=== PATIENT | male | born 1975 | race African-American/Black ===

== ENCOUNTER → 2021-01-17 09:36 | Outpatient (CLI) | payer OTHER, SELFPAY ==
--- NOTE | 2021-01-17 09:43 | DI.MRI.S_ITS ---
PROCEDURE: MR ANKLE RT WO CON INDICATIONS: Other instability, right ankle TECHNIQUE: Noncontrast sagittal T1 spin echo and T2 fast spin echo with fat saturation, axial proton density fast spin echo and T2 fast spin echo with fat saturation, coronal T1 spin echo and T2 fast spin echo with fat saturation through the ankle/hindfoot. COMPARISON: None. FINDINGS: Image quality: Excellent. Bones and joints: A chronic osteochondral lesion is seen at the lateral talar dome measuring 14 x 5 x 9 mm with chronic subchondral cystic changes, overlying cartilage loss, and mild irregularity of the subchondral plate. No loose osteochondral fragment is seen. Prominent osteophyte formation is seen at the dorsal aspect of the talonavicular joint with associated osseous edema. There is increased signal intensity within the dorsal talonavicular ligament. Edema is seen within the medial talus involving the insertion site of the anterior fibers of the deltoid ligament. Mild degenerative changes are seen at the navicular cuneiform articulations. A 6 mm ossified loose body is seen in the posterior recess. Medial structures: The anterior fibers of the deep deltoid ligament appear attenuated and increased in signal intensity with osseous edema at the distal insertion site onto the talus. The visualized spring ligament components appear to be intact. There is mild tenosynovitis of the distal posterior tibialis tendon. The flexor digitorum longus and flexor hallucis longus tendons are intact. The posterior tibial neurovascular bundle appears normal within the tarsal tunnel, without extrinsic mass effect. Lateral structures: There is chronic complete tearing of the anterior talofibular ligament. The calcaneofibular and posterior talofibular ligaments appear intact. The anterior and posterior tibiofibular ligaments appear intact. The peroneus longus and brevis tendons demonstrate normal location and morphology. The sinus tarsi demonstrates normal fatty signal, without edema, fibrosis, or cyst formation. Anterior structures: The tibialis anterior, extensor hallucis longus, and extensor digitorum longus tendons appear intact. Posterior and plantar structures: Achilles tendon is intact. Medial and lateral bands of the plantar fascia are of normal thickness. No abductor digiti quinti muscle atrophy to suggest Philip neuropathy. IMPRESSION: 1. Prominent osteophyte formation at the dorsal aspect of the talonavicular joint with associated osseous edema and likely chronic partial tearing/sprain of the dorsal talonavicular ligament. 2. Chronic osteochondral lesion at the lateral talar dome with overlying cartilage loss, irregularity of the subchondral plate, and chronic cystic changes. 3. Chronic moderate grade sprain involving the anterior fibers of the deep deltoid ligament with mild traction edema at the medial aspect of the talus. 4. Mild tenosynovitis of the distal posterior tibialis tendon. 5. Chronic complete tearing of the anterior talofibular ligament. 6. Small 6 mm ossified loose body within a posterior lateral recess of the mortise joint. Dictated by: Gabo Rojas M.D. on 01/17/2021 at 10:27 Approved by: Gabo Rojas M.D. on 01/17/2021 at 10:56
== END ==
PROVIDERS: Referring Provider Podiatrist; Visit Provider Podiatrist
DX: M25.371 Other instability, right ankle (principal); M25.771 Osteophyte, right ankle; S93.421A Sprain of deltoid ligament of right ankle, initial encounter; S93.491A Sprain of other ligament of right ankle, initial encounter; M65.9 Synovitis and tenosynovitis, unspecified; M24.071 Loose body in right ankle
CPT/HCPCS: 73721